=== PATIENT | male | born 1960 | race Caucasian/White ===

== ENCOUNTER 2019-09-03 13:59 | Emergency (ER) | payer OTHER ==
[~2019-09-03] VITALS: Ht 177.8 cm; Wt 114.5 kg
[~2019-09-03 13:59] MED LIST: LIDOcaine 1% W/epiNEPHrine 1:100,000 20ml vial ONE
[2019-09-03 14:18] VITALS: BP 161/108
== END 2019-09-03 16:20 | disposition home or self-care (01) ==
LOC: ER 13:59
DX: S91.201A Unspecified open wound of right great toe with damage to nail, initial encounter (principal); L60.0 Ingrowing nail; W26.8XXA Contact with other sharp object(s), not elsewhere classified, initial encounter; Y93.89 Activity, other specified; Y92.89 Other specified places as the place of occurrence of the external cause; Y99.8 Other external cause status
CPT/HCPCS: 11765; 99283